=== PATIENT | female | born 1985 | race African-American/Black ===

== ENCOUNTER 2016-06-17 10:11 | Emergency (ER) | payer OTHER ==
[~2016-06-17 10:11] MED LIST: AMOXICILLIN PO; AUGMENTIN; BACTRIM DS TABL1 TA1; BACTRIM DS TABL1 TA1 PO; CIPRO PO; DARVOCET-N 1001 TAB; DARVOCET-N 1001 TAB PO; FLEXERIL10 M1 PO; LORTAB 5/500 TA1 TA1 PO; METRONIDAZOLE PO; NAPROSYN500 MG PO; PEN-VEE K PO; PERCOCET5/325; PRENATAL VITAMI1 TA3 PO; VICODIN 5/500 T1 TAB PO; VOLTAREN75 MG PO
== END 2016-06-17 10:20 | disposition home or self-care (01) ==
LOC: CFTX 10:11
DX: L02.416 Cutaneous abscess of left lower limb (principal); F17.200 Nicotine dependence, unspecified, uncomplicated
CPT/HCPCS: 10060; 87070; 87205; 99283

== ENCOUNTER 2016-06-19 09:54 | Emergency (ER) | payer OTHER | END 2016-06-19 10:07 | disposition home or self-care (01) | LOC: CED 09:54 | DX: Z48.00 Encounter for change or removal of nonsurgical wound dressing (principal); F17.200 Nicotine dependence, unspecified, uncomplicated | CPT/HCPCS: 99281 ==